=== PATIENT | female | born 1935 | race Caucasian/White ===

== ENCOUNTER → 2017-06-06 | Outpatient (CLI) | payer OTHER ==
[~2017-06-06] MED LIST: ASPI81TA28 PO; CHOL100010 PO; CYAN500T13 PO; FISHOIL PO; SERT-234 PO; SIMV20TA2 PO; VALA500T60 PO
--- NOTE | 2017-06-06 09:51 | DIAGNOSTIC IMAGING REPORT ---
GI W/AIR SMALL BOWEL ROUTINE CLINICAL HISTORY: BILATERAL UPPER ABDOMINAL DISCOMFORT COMPARISON STUDY: None FLUOROSCOPY TIME: 3.2 minutes. NUMBER OF FLUOROSCOPIC IMAGES: 32 FINDINGS: The patient swallowed effervescent granules and barium without difficulty. No esophageal masses or ulcerations are visualized. There is a small hiatal hernia. 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 There are postsurgical changes of a partial gastrectomy. There is a gastrojejunostomy. No abnormally dilated loops of jejunum or ileum are visualized. There is no evidence for abnormal loop separation. Contrast reached the cecum by the 40 minute film. Fluoroscopic spot images reveal no small bowel abnormalities. IMPRESSION: 1. Postsurgical changes of a partial gastrectomy and gastrojejunostomy 2. Small hiatal hernia 3. Disordered esophageal motility 4. No small bowel abnormalities identified Electronically signed by: Huy Castellano M.D. 06/06/2017 9:50 AM Dictated Date/Time: 06/06/2017 9:47 AM
== END | disposition home or self-care (01) ==
LOC: C.RAD 07:52
PROVIDERS: ATTEND Nurse Practitioner
DX: R10.11 Right upper quadrant pain (principal); R10.12 Left upper quadrant pain; Z90.3 Acquired absence of stomach [part of]; K44.9 Diaphragmatic hernia without obstruction or gangrene; Z93.4 Other artificial openings of gastrointestinal tract status

== ENCOUNTER 2017-06-28 14:23 | Emergency (ER) | payer OTHER ==
[~2017-06-28] VITALS: Ht 152.4 cm; Wt 68.0 kg
[~2017-06-28 14:23] MED LIST changes: -ASPI81TA28 PO; -CYAN500T13 PO
[2017-06-28 14:29] VITALS: TEMP 37; Ht 152.4 cm; Wt 68.0 kg
[2017-06-28] MEDS ORDERED: SODIUM CHLORIDE 0.9% 1000ML 1,000 ML IV STA (14:38)
[2017-06-28] MEDS ORDERED: ONDANSETRON INJ 2 MG/ML 2 ML VIAL IV STA (14:38)
--- NOTE | 2017-06-28 14:39 | EMERGENCY ROOM VISIT NOTE ---
History Report prepared by [place]: Geeta Salazar Under the Supervision of: Dr. Payam Holman D.O. First contact with patient: 14:33 Chief Complaint: ABDOMINAL PAIN Stated Complaint: PAIN IN LEFT SIDE OF ABDOMEN, NAUSEA Nursing Triage Summary: pt to the ED with c/o left sided abd and rib pain s/p colonscopy today + n/v History of Present Illness The patient is an 81 year old female who presents to the Emergency Room with complaints of persistent abdominal pain since after 1100 today. She recently had a colonoscopy at [facility] at 1100 today. She currently rates her pain a 9 /10 in severity. Per daughter, the patient sometimes has adverse reactions to colonoscopies. She states the patient has been bleeding from her rectum and is now vomiting. The patient reports her abdominal pain is worsened with deep breathing. She reports shaking and a cough. She denies any chest pain. She states they did a biopsy, though she is unsure where they did the biopsy. She regularly takes baby Aspirin. She denies any smoking or drinking. Source of History: patient, family Onset: after 1100 today Position: abdomen Symptom Intensity: 9/10 Timing: other (persistent) Modifying Factors (Worsening): breathing (deep) Associated Symptoms: + vomiting, No chest pain Note: She notes rectal bleeding. Review of Systems See HPI for pertinent positives & negatives. A total of 10 systems reviewed and were otherwise negative. Past Medical & Surgical Medical Problems: (1) Appendectomy (2) Cholecystectomy (3) DIAB JOJO WO COMPL, TYPE II OR UNSPEC TYPE, NOT UNCNTRLD (4) DVT (deep venous thrombosis) (5) Hysterectomy (6) PNEUMONIA, ORGANISM NOS Family History Diabetes mellitus FH: cancer FH: gallbladder disease FH: heart disease Social History Smoking Status: Never Smoker Alcohol Use: none Drug Use: none Marital Status: Housing Status: lives with family Occupation Status: retired Current/Historical Medications Scheduled Aspirin (Aspirin Ec), 81 MG PO QPM Cholecalciferol (Vitamin D), 5,000 UNITS PO DAILY Cyanocobalamin (Vitamin B12 500MCG), 500 MCG PO DAILY Hydrocortisone (Rectal) (Procto-Med Hc), 1 APPLN RE BID Metformin Hcl Er (Glucophage Er), 500 MG PO QPM [place]-3 Fatty Acids (Fish Oil), 1 CAP PO DAILY Omeprazole (Prilosec), 20 MG PO DAILY Sertraline HCl (Sertraline HCl), 150 MG PO DAILY Simvastatin (Simvastatin), 20 MG PO QPM Valacyclovir (Valtrex), 500 MG PO DAILY Vitamin E (Vitamin E 100 Iu), 100 INTER.UNIT PO DAILY Scheduled PRN Hydrocortisone Acetate (Rectal (Anusol-Hc), 25 MG AL HS PRN for Hemorrhoids Allergies Coded Allergies: Adhesives (Verified Allergy, Unknown, ., 10/07/15) Physical Exam Vital Signs Date Time Temp Pulse Resp B/P (MAP) Pulse Ox O2 Delivery O2 Flow Rate FiO2 06/28/17 16:05 91 148/70 91 Room Air 06/28/17 15:19 93 06/28/17 14:29 37.0 70 20 156/122 97 Room Air Physical Exam GENERAL: Patient is awake, alert, and in no acute distress. Patient is anxious and uncomfortable. EYES: The conjunctivae are clear. The pupils are round and reactive. EARS, NOSE, MOUTH AND THROAT: The nose is without any evidence of any deformity. Mucous membranes are moist tongue is midline NECK: The neck is nontender and supple. RESPIRATORY: Normal respiratory effort is noted there is no evidence of wheezing rhonchi or rales CARDIOVASCULAR: Regular rate and rhythm noted there no murmurs rubs or gallops normal S1 normal S2 GASTROINTESTINAL: The abdomen is soft and distended. LLQ significant tenderness to palpation. No guarding or rigidity. BACK: No midline tenderness or or step-off noted range of motion in flexion extension as well as rotation no signs of muscle spasm noted RECTAL: showed gross blood MUSCULOSKELETAL/EXTREMITIES: There is no evidence of gross deformity full range of motion is noted in the hips and shoulders SKIN: There is no obvious evidence of any rash. There are no petechiae, pallor or cyanosis noted. NEUROLOGIC: Patient is awake alert and oriented x3. Medical Decision & Procedures ER Provider Diagnostic Interpretation: Radiology results as stated below per my review and radiologist interpretation: CHEST ONE VIEW PORTABLE CLINICAL HISTORY: cough COMPARISON STUDY: 11/16/2012 FINDINGS: The heart is normal in size. There are nodular airspace opacities within the left mid and upper lung zones. Given the history of cough, these may represent a pneumonia. As an underlying neoplastic process cannot be excluded, imaging subsequent to treatment is recommended in follow-up. There are no pleural effusions.[ IMPRESSION: 1. Nodular left mid and upper lung zone airspace opacities. 2. Given the history of cough, these may represent a pneumonia. Imaging subsequent to antibiotic therapy is recommended to exclude an underlying malignancy Electronically signed by: Huy Castellano M.D. 06/28/2017 2:54 PM Dictated Date/Time: 06/28/2017 2:[address] OF THE ABDOMEN AND PELVIS WITH CONTRAST CLINICAL HISTORY: Abdominal pain and bleeding status post colonoscopy. COMPARISON STUDY: CT of the abdomen and pelvis October 07, 2015. TECHNIQUE: Following IV administration of 117 mL of Optiray-320, axial images of the abdomen and pelvis were obtained from the lung bases to the proximal femurs. Images were reviewed in the axial, sagittal, and coronal planes. IV contrast was administered without complication. A dose lowering technique was utilized adhering to the principles of ALARA. CT DOSE: 576.43 mGycm FINDINGS: Visualized portions of the lower chest demonstrate lingular airspace opacity. The liver, adrenal glands, kidneys and pancreas are unremarkable. There is no biliary ductal dilatation status post cholecystectomy. No free air is present. Note is made of a moderate sized perisplenic hematoma that measures 2.1 cm in thickness. An area of increased attenuation within the inferior aspect of the hematoma reflects active extravasation. An adjacent linear hypodensity within the spleen suggests a laceration. There is a small amount of fluid within the pelvis which measures above water attenuation. This likely reflects hemoperitoneum. There is no evidence for a bowel obstruction. There is no lymphadenopathy. There are no suspicious osseous lesions. IMPRESSION: 1. Moderate sized perisplenic hematoma, likely subcapsular, which contains a focus of active extravasation. Probable small inferior splenic laceration. Small amount of probable hemoperitoneum within the pelvis. No free air. Surgical consultation is recommended. Findings discussed with Dr. Holman at time of dictation. 2. Partially imaged lingular airspace opacity which favors an infectious process. Electronically signed by: Beto Hernandez M.D. 06/28/2017 5:46 PM Dictated Date/Time: 06/28/2017 5:18 PM Laboratory Results 06/28/17 15:42 Red Blood Count 3.87, Mean Corpuscular Volume 89.7, Mean Corpuscular Hemoglobin 29.2, Mean Corpuscular Hemoglobin Concent 32.6, Mean Platelet Volume 9.2, Neutrophils (%) (Auto) 92.4, Lymphocytes (%) (Auto) 4.4, Monocytes (%) (Auto) 2.9, Eosinophils (%) (Auto) 0.1, Basophils (%) (Auto) 0.0, Neutrophils # (Auto) 7.56, Lymphocytes # (Auto) 0.36, Monocytes # (Auto) 0.24, Eosinophils # (Auto) 0.01, Basophils # (Auto) 0.00 06/28/17 15:42 Test 06/28/17 15:42 06/28/17 16:00 06/28/17 19:39 White Blood Count 8.19 K/uL (4.8-10.8) Red Blood Count 3.87 M/uL (4.2-5.4) Hemoglobin 11.3 g/dL (12.0-16.0) Hematocrit 34.7 % (37-47) Mean Corpuscular Volume 89.7 fL (80-100) Mean Corpuscular Hemoglobin 29.2 pg (25-34) Mean Corpuscular Hemoglobin Concent 32.6 g/dl (32-36) Platelet Count 231 K/uL (130-400) Mean Platelet Volume 9.2 fL (7.4-10.4) Neutrophils (%) (Auto) 92.4 % Lymphocytes (%) (Auto) 4.4 % Monocytes (%) (Auto) 2.9 % Eosinophils (%) (Auto) 0.1 % Basophils (%) (Auto) 0.0 % Neutrophils # (Auto) 7.56 K/uL (1.4-6.5) Lymphocytes # (Auto) 0.36 K/uL (1.2-3.4) Monocytes # (Auto) 0.24 K/uL (0.11-0.59) Eosinophils # (Auto) 0.01 K/uL (0-0.5) Basophils # (Auto) 0.00 K/uL (0-0.2) RDW Standard Deviation 48.2 fL (36.4-46.3) RDW Coefficient of Variation 14.7 % (11.5-14.5) Immature Granulocyte % (Auto) 0.2 % Immature Granulocyte # (Auto) 0.02 K/uL (0.00-0.02) Prothrombin Time 10.1 SECONDS (9.0-12.0) Prothromb Time International Ratio 1.0 (0.9-1.1) Activated Partial Thromboplast Time 20.4 SECONDS (21.0-31.0) Partial Thromboplastin Ratio 0.8 Est Creatinine Clear Calc Drug Dose 46.9 ml/min Estimated GFR () 78.9 Estimated GFR (Non- 68.1 BUN/Creatinine Ratio 13.8 (10-20) Calcium Level 8.2 mg/dl (8.5-10.1) Total Bilirubin 0.5 mg/dl (0.2-1) Direct Bilirubin 0.2 mg/dl (0-0.2) Aspartate Amino Transf (AST/SGOT) 21 U/L (15-37) Alanine Aminotransferase (ALT/SGPT) 20 U/L (12-78) Alkaline Phosphatase 70 U/L (45-117) Total Creatine Kinase 82 U/L (26-192) Creatine Kinase MB 1.1 ng/ml (0.5-3.6) Creatine Kinase MB Ratio 1.3 (0-3.0) Troponin I < 0.015 ng/ml (0-0.045) Total Protein 6.7 gm/dl (6.4-8.2) Albumin 3.4 gm/dl (3.4-5.0) Lipase 170 U/L (73-393) Urine Color YELLOW Urine Appearance CLEAR (CLEAR) Urine pH 5.0 (4.5-7.5) Urine Specific [place] 1.016 (1.000-1.030) Urine Protein NEG (NEG) Urine Glucose (UA) NEG (NEG) Urine Ketones 2+ (NEG) Urine Occult Blood NEG (NEG) Urine Nitrite NEG (NEG) Urine Bilirubin NEG (NEG) Urine Urobilinogen NEG (NEG) Urine Leukocyte Esterase NEG (NEG) Bedside Hemoglobin 10.2 g/dl (12.0-16.0) Bedside Hematocrit 30 % (37-47) Bedside Sodium 140 mEq/L (135-144) Bedside Potassium 3.1 mEq/L (3.3-5.0) Bedside Chloride 103 mEq/L (101-112) Bedside Total CO2 23 mEq/l (24-31) Anion Gap 18.0 mmol/L (16-25) Bedside Blood Urea Nitrogen 9 mg/dl (7-18) Bedside Creatinine 0.7 mg/dl (0.6-1.3) Bedside Glucose (other) 122 mg/dl (70-99) Bedside Ionized Calcium (Krystal) 1.05 mmol/l (1.12-1.32) Laboratory results per my review. Medications Administered Medications (Trade) Dose Ordered Sig/Johnathon Route Start Time Stop Time Status Last Admin Dose Admin Sodium Chloride 1,000 ml @ 999 mls/hr Q1H1M STAT IV 06/28/17 14:38 06/28/17 15:38 DC 06/28/17 16:03 999 MLS/HR Ondansetron HCl (Zofran Inj) 4 mg NOW STAT IV 06/28/17 14:38 06/28/17 14:39 DC 06/28/17 16:04 4 MG Morphine Sulfate (MoRPHine SULFATE INJ) 4 mg Q15M PRN IV 06/28/17 14:45 06/29/17 00:10 DC 06/28/17 16:04 4 MG ECG Per My Interpretation Indication: abdominal pain Rate (beats per minute): 66 Rhythm: normal sinus Findings: no acute ischemic change, no ectopy (no PVC) Change: no significant change (no change when compared to 11/16/2012) ED Course 1436: The patient was evaluated in room B4B. A complete history and physical examination were performed. 1438: Ordered Zofran 4 mg IV and NSS 1,000 ml @ 999 mls/hr IV 1445: Ordered Morphine Sulfate 4 mg IV 1733: I spoke with Dr. Cole, general surgeon. We discussed the patient's case. He recommends transferring the patient for further care. 1735: I reassessed the patient at this time. I discussed the results and treatment plan with the patient. I answered all pertaining questions that she had. She expressed understanding and verbalized agreement. The patient will be transferred for further care. 1747: I reassessed the patient at this time. I spoke with the patients family. 174: I spoke with Dr. Gipson, [facility] trauma surgeon. We discussed the patient's case. The patient will be accepted to the [facility]. She recommends transferring the patient by air transport. 2049: I reassessed the patient at this time. [facility] has arrived. The patient is being transferred to [facility]. Medical Decision Prior records/ancillary studies reviewed. Triage Nursing notes reviewed. Additional history obtained from daughter. The patient's history was concerning for abdominal pain. Differential diagnosis: Etiologies such as appendicitis, diverticulitis, PUD, biliary pathology, UTI, pancreatitis, obstruction, mesenteric ischemia, aortic pathology, infections, inflammatory bowel disease, renal colic, as well as others were entertained. The patient is an 81-year-old female who presented to the emergency department for an evaluation of abdominal pain. The patient is status post colonoscopy. The patient was sent to the emergency department with left-sided chest pain. She had significant left upper quadrant abdominal pain on my exam. She also had active lower GI bleeding. She did have a biopsy during the colonoscopy. The patient had a history and physical exam concerning for a splenic injury. CT did reveal a splenic injury. The patient was treated with IV fluids IV pain medicine and IV anti-medics. She was also given IV antibiotic for presumed pneumonia noted on chest x-ray as well as CT. I discussed the patient's laboratory and radiographic studies with her and her family. I discussed her case with our general surgeon but he felt the patient would be better managed at a tertiary center. I also discussed his case with the general surgical group at [facility] in [place]. They have agreed to accept the patient in transfer. The patient was transferred via ground ambulance. I initially requested air transport but because of whether we were unable to transfer the patient via air. The patient was reevaluated multiple times. She had a repeat hemoglobin which was still over 10. She did not require transfusion at our facility. Patient was at our facility during an unscheduled computer downtime Medication Reconcilliation Current Medication List: was personally reviewed by me Blood Pressure Screening Patient's blood pressure: Normal blood pressure Consults Time Called: 1720 Consulting Physician: Dr. Cole, general surgeon Returned Call: [phone] Cole, general surgeon. We discussed the patient's case. He recommends transferring the patient for further care. Additional Consults: Time Called: 1726 Consulted Physician: Dr. Gipson, [facility] trauma surgeon Returned Call: [phone] Additional Comments: I spoke with Dr. Gipson, [facility] trauma surgeon. We discussed the patient's case. The patient will be accepted to the [facility]. She recommends transferring the patient by air transport. Impression Primary Impression: Splenic laceration Additional Impressions: Pneumonia Hypoxia GI bleed Critical Care I have personally spent greater than 60 minutes of critical care time in the direct management of this patient. This includes bedside care, interpretation of diagnostic studies, and testing, discussion with consultants, patient, and family members, and other required patient management activities. This 60 minutes is in excess of all separately billable procedures. Scribe Attestation The scribe's documentation has been prepared under my direction and personally reviewed by me in its entirety. I confirm that the note above accurately reflects all work, treatment, procedures, and medical decision making performed by me. Departure Information Dispostion Transfer [facility] ([facility]) Referrals Adán Garvey D.O. (PCP) Patient Instructions [facility] Problem Qualifiers Primary Impression: Splenic laceration Encounter type: initial encounter Qualified Codes: S36.039A - Unspecified laceration of spleen, initial encounter Additional Impressions: Pneumonia Pneumonia type: due to unspecified organism Laterality: left Lung location : lower lobe of lung Qualified Codes: J18.1 - Lobar pneumonia, unspecified organism GI bleed GI bleed type/associated pathology: unspecified gastrointestinal hemorrhage type Qualified Codes: K92.2 - Gastrointestinal hemorrhage, unspecified
[2017-06-28] MEDS ORDERED: MoRPHine SULFATE 4 MG/ML 1 ML CARP\\VIAL IV PRN (14:45)
--- NOTE | 2017-06-28 14:55 | DIAGNOSTIC IMAGING REPORT ---
CHEST ONE VIEW PORTABLE CLINICAL HISTORY: cough COMPARISON STUDY: 11/16/2012 FINDINGS: The heart is normal in size. There are nodular airspace opacities within the left mid and upper lung zones. Given the history of cough, these may represent a pneumonia. As an underlying neoplastic process cannot be excluded, imaging subsequent to treatment is recommended in follow-up. There are no pleural effusions.[ IMPRESSION: 1. Nodular left mid and upper lung zone airspace opacities. 2. Given the history of cough, these may represent a pneumonia. Imaging subsequent to antibiotic therapy is recommended to exclude an underlying malignancy Electronically signed by: Huy Castellano M.D. 06/28/2017 2:54 PM Dictated Date/Time: 06/28/2017 2:52 PM
[2017-06-28] MEDS ORDERED: OPTIRAY 320 IV PRN (15:00)
[2017-06-28] MEDS ORDERED: HYDR2.5C60 RE (15:30)
[2017-06-28] MEDS ORDERED: OMEP20CA9 PO (15:30)
[2017-06-28] MEDS ORDERED: OMEGCAP2 PO (15:30)
[2017-06-28] MEDS ORDERED: ZLF/100 PO (15:30)
[2017-06-28] MEDS ORDERED: CHOL1TAB42 PO (15:30)
[2017-06-28] MEDS ORDERED: SIMV-151 PO (15:30)
[2017-06-28] MEDS ORDERED: METF500T5 PO (15:30)
[2017-06-28] MEDS ORDERED: HYDR25SU20 PR (15:30)
[2017-06-28] MEDS ORDERED: VITA100C2 PO (15:30)
[2017-06-28 16:00] LABS: EOS % 0.1 %; EOS ABS # 0.01 K/uL (0-0.5); HEMATOCRIT 34.7 % (37-47); HEMOGLOBIN 11.3 g/dL (12.0-16.0); IG# 0.02 K/uL (0.00-0.02); LYMPH % 4.4 %; LYMPH ABS # 0.36 K/uL (1.2-3.4); MEAN CELL VOLUME 89.7 fL (80-100); MEAN CORPUSCULAR HEMOGLOBIN 29.2 pg (25-34); MEAN CORPUSCULAR HGB CONC 32.6 g/dl (32-36); MEAN PLATELET VOLUME 9.2 fL (7.4-10.4); MONO % 2.9 %; MONO ABS # 0.24 K/uL (0.11-0.59); NEUT % 92.4 %; NEUT ABS # 7.56 K/uL (1.4-6.5); PLATELET COUNT 231 K/uL (130-400); RED CELL DISTRIBUTION WIDTH CV 14.7 % (11.5-14.5); RED CELL DISTRIBUTION WIDTH SD 48.2 fL (36.4-46.3); WHITE BLOOD COUNT 8.19 K/uL (4.8-10.8)
[2017-06-28 16:05] VITALS: BP 148/70; PULSE 91; O2SAT 91
[2017-06-28 16:05] LABS: ISTAT CREATININE 0.8 mg/dl (0.6-1.3); ISTAT IONIZED CALCIUM 1.04 mmol/l (1.12-1.32); ISTAT POTASSIUM 3.3 mEq/L (3.3-5.0)
[2017-06-28 16:11] LABS: PTT PATIENT 20.4 SECONDS (21.0-31.0)
[2017-06-28 16:17] LABS: ALBUMIN 3.4 gm/dl (3.4-5.0); ALT/SGPT 20 U/L (12-78); AST/SGOT 21 U/L (15-37); BLOOD UREA NITROGEN 11 mg/dl (7-18); CALCIUM 8.2 mg/dl (8.5-10.1); CARBON DIOXIDE 25 mmol/L (21-32); CREATININE 0.81 mg/dl (0.60-1.20); GLUCOSE 119 mg/dl (70-99); LIPASE 170 U/L (73-393); POTASSIUM 3.2 mmol/L (3.5-5.1); SODIUM 138 mmol/L (136-145)
[2017-06-28 16:22] LABS: ALKALINE PHOSPHATASE 70 U/L (45-117); CKMB 1.1 ng/ml (0.5-3.6); TOTAL PROTEIN 6.7 gm/dl (6.4-8.2)
[2017-06-28] MEDS ORDERED: CYAN500T13 PO (17:20)
[2017-06-28] MEDS ORDERED: ASPI81TA28 PO (17:25)
--- NOTE | 2017-06-28 17:47 | DIAGNOSTIC IMAGING REPORT ---
CT OF THE ABDOMEN AND PELVIS WITH CONTRAST CLINICAL HISTORY: Abdominal pain and bleeding status post colonoscopy. COMPARISON STUDY: CT of the abdomen and pelvis October 07, 2015. TECHNIQUE: Following IV administration of 117 mL of Optiray-320, axial images of the abdomen and pelvis were obtained from the lung bases to the proximal femurs. Images were reviewed in the axial, sagittal, and coronal planes. IV contrast was administered without complication. A dose lowering technique was utilized adhering to the principles of ALARA. CT DOSE: 576.43 mGycm FINDINGS: Visualized portions of the lower chest demonstrate lingular airspace opacity. The liver, adrenal glands, kidneys and pancreas are unremarkable. There is no biliary ductal dilatation status post cholecystectomy. No free air is present. Note is made of a moderate sized perisplenic hematoma that measures 2.1 cm in thickness. An area of increased attenuation within the inferior aspect of the hematoma reflects active extravasation. An adjacent linear hypodensity within the spleen suggests a laceration. There is a small amount of fluid within the pelvis which measures above water attenuation. This likely reflects hemoperitoneum. There is no evidence for a bowel obstruction. There is no lymphadenopathy. There are no suspicious osseous lesions. IMPRESSION: 1. Moderate sized perisplenic hematoma, likely subcapsular, which contains a focus of active extravasation. Probable small inferior splenic laceration. Small amount of probable hemoperitoneum within the pelvis. No free air. Surgical consultation is recommended. Findings discussed with Dr. Holman at time of dictation. 2. Partially imaged lingular airspace opacity which favors an infectious process. Electronically signed by: Beto Hernandez M.D. 06/28/2017 5:46 PM Dictated Date/Time: 06/28/2017 5:18 PM
[2017-06-28] MEDS ORDERED: PIPERACILLIN/TAZOBACTAM 4.5 GM/100ML D5W ONE (18:17)
[2017-06-28 20:39] LABS: ISTAT CREATININE 0.7 mg/dl (0.6-1.3); ISTAT IONIZED CALCIUM 1.05 mmol/l (1.12-1.32); ISTAT POTASSIUM 3.1 mEq/L (3.3-5.0)
== END 2017-06-28 21:12 | disposition short-term general hospital (02) ==
LOC: C.EDB 14:25
DX: S36.039A Unspecified laceration of spleen, initial encounter (principal); J18.1 Lobar pneumonia, unspecified organism; R09.02 Hypoxemia; K92.2 Gastrointestinal hemorrhage, unspecified; X58.XXXA Exposure to other specified factors, initial encounter; E11.9 Type 2 diabetes mellitus without complications; Z86.718 Personal history of other venous thrombosis and embolism; Z87.01 Personal history of pneumonia (recurrent); Z91.048 Other nonmedicinal substance allergy status; Z90.710 Acquired absence of both cervix and uterus; Z90.49 Acquired absence of other specified parts of digestive tract; Z90.89 Acquired absence of other organs; Z83.3 Family history of diabetes mellitus; Z79.82 Long term (current) use of aspirin; Z79.84 Long term (current) use of oral hypoglycemic drugs